=== PATIENT | female | born 1990 | race Hispanic/Latino ===

== ENCOUNTER 2019-12-21 13:39 | Observation (INO) | payer BC ==
[~2019-12-21] VITALS: Ht 149.9 cm; Wt 61.7 kg
[2019-12-21 16:01] VITALS: BP 104/66
[2019-12-24] MEDS ORDERED: FISH1CAP27 PO (12:42)
[2019-12-24] MEDS ORDERED: PREN1TAB80 PO (12:42)
== END 2019-12-21 16:45 | disposition home or self-care (01) ==
LOC: LDH 13:39
PROVIDERS: ADMIT Obstetrics & Gynecology; ATTEND Obstetrics & Gynecology
DX: O42.92 Full-term premature rupture of membranes, unspecified as to length of time between rupture and onset of labor (principal); Z3A.38 38 weeks gestation of pregnancy
CPT/HCPCS: G0378

== ENCOUNTER → 2020-04-23 | Outpatient (CLI) | payer BC ==
[~2020-04-23] MED LIST: FISH1CAP27 PO; PREN1TAB80 PO
== END | disposition home or self-care (01) ==
LOC: RAH 15:03
PROVIDERS: ATTEND Obstetrics & Gynecology
DX: N63.12 Unspecified lump in the right breast, upper inner quadrant (principal)
CPT/HCPCS: 76641